=== PATIENT | female | born 1985 | race Two or more races ===

== ENCOUNTER 2018-05-19 15:22 | Emergency (ER) | payer OTHER ==
[~2018-05-19] VITALS: Ht 160 cm; Wt 62.6 kg
[2018-05-19 15:47] VITALS: BP 127/76
== END 2018-05-19 19:42 | disposition left against medical advice (07) ==
LOC: ER 15:41
DX: M25.562 Pain in left knee (principal); Z53.21 Procedure and treatment not carried out due to patient leaving prior to being seen by health care provider